=== PATIENT | male | born 1950 | race Caucasian/White ===

== ENCOUNTER 2024-02-12 13:09 | Inpatient (IN) | payer MEDICARE, SELFPAY ==
[2024-02-12 13:17] VITALS: BP 185/86; PULSE 79; RESP 17; TEMP 37.1; O2SAT 96; BMI 25.7
--- NOTE | 2024-02-12 13:20 | ED_ITS ---
HPI - Fall 2 General: Chief Complaint: Extremity Injury, Lower Stated Complaint: fall Time Seen by Provider: 02/12/24 13:17 Source: patient and EMS Mode of arrival: EMS Limitations: no limitations History of Present Illness: 73-year-old male states he was on an ext ension ladder states he is roughly 8 to 10 foot up and fell off the ladder he states he had fell on his left leg and hip has pain in that left hip. Was unable to ambulate is given fentanyl and route states pain is currently 4 out of 10 he denies any other injuries denies hitting his head denies any neck pain. Associated symptoms-after fall: Denies abdominal pain, chest pain, headache(s) or neck pain Related Data Allergies Allergy/AdvReac Type Severity Reaction Status Date / Time No Known Allergies Allergy Verified 02/12/24 13:22 Review of Systems 2 Const: Denies: fever(s), chills, body aches or change in appetite ENMT: Denies: throat pain or dental pain Card: Denies: chest pain Resp: Denies: dyspnea GI: Denies: abdominal pain, nausea, vomiting or diarrhea Musc: Reports: extremity pain; Denies: neck pain or back pain Neuro: Denies: headache(s) Physical Exam 2 Const: COMMON NORMALS: no acute distress, patient oriented x3 and healthy appearing HENMT: COMMON NORMALS: normocephalic and atraumatic HEAD & SCALP: n ormocephalic and atraumatic Eye: COMMON NORMALS: Equal, round and reactive pupils present and EOMs intact bilaterally PUPIL: Yes Equal, round and reactive pupils present Neck/C-Spine: COMMON NORMALS: full ROM and supple CERVICAL SPINE: Yes cervical ROM normal and No Cervical spine tenderness Chest: COMMONS NORMALS: normal inspection of the chest and normal palpation of entire chest wall Resp: COMMON NORMALS: normal respiratory effort, No retractions, No use of accessory muscles and clear to auscultation bilaterally AUSCULTATION: clear to auscultation bilaterally Cardio: COMMON NORMALS: regular rate RATE: regular rate GI: COMMON NORMALS: Normal to inspection, nondistended, normoactive bowel sounds present, Soft to palpation, non-tender and no masses PALPATION: Yes Soft to palpation Extremity: NARRATIVE EXTREMITY EXAM: Tenderness noted to left hip has pain with range of motion Neuro: COMMON NORMALS: patient oriented x3, moves all extremities and no focal motor deficits Psych: COMMON NORMALS: mental status grossly normal, Normal thought process present and cooperative THOUGHT PROCESS: Normal thought process present Skin: COMMON NORMALS: no rashes or lesions noted and no wounds GENERAL SKIN EXAM: no rashes or lesions noted Course 2 Vital Signs: Vital signs: Vital Signs Temperature 98.7 F 02/12/24 13:17 Pulse Rate 79 02/12/24 13:17 Respiratory Rate 17 02/12/24 13:17 Blood Pressure 185/86 02/12/24 13:17 Pulse Oximetry 96 02/12/24 13:17 Oxygen Delivery Me thod Room Air 02/12/24 13:17 MDM - Fall Medical Decision Making Patient presents after a fall off a ladder he has a left hip fracture of spoke to the hospitalist along with orthopedist will admit this time no other injuries noted on exam here. Medical Records I reviewed the patient's medical records. Lab Data I reviewed the patient's lab results. 02/12/24 14:11 02/12/24 14:11 Radiology Impressions Chest X-Ray 02/12/24 13:20 Impression: No acute lung process is appreciated. Hip/Pelvis X-Ray 02/12/24 13:20 Impression: There is a displaced intracapsular fracture of the left hip. Pelvis X-Ray 02/12/24 13:58 Impression: There is a displaced intracapsular fracture of the left hip. All radiology interpretation(s) finalized by discharge Discharge Plan Discharge Patient Disposition: Admitted As Inpatient Clinical Impression: Closed fracture of left hip Qualifiers: Encounter type: initial encounter Qualified Code(s): S72.002A - Fracture of unspecified part of neck of left femur, initial encounter for closed fracture Condition: Stable Coding Level of Care Code ED Marketing Intelligence Manager for Yasmine Escalera
--- NOTE | 2024-02-12 13:20 | XR_ITS ---
WS: [email or web address] Examination: XR hip LT 2-3V wo/w pel* [id number] Reason for Exam: fall Date: February 12, 2024 Comparison: None. Findings: There is a displaced intracapsular fracture of the left hip. No dislocation is suspected. XR/XR hip LT 2-3V wo/w pel* [id number] Impression: There is a displaced intracapsular fracture of the left hip.
--- NOTE | 2024-02-12 13:20 | XR_ITS ---
WS: [email or web address] Examination: XR chest 1V portable [id number] Reason for Exam: fall Date: February 12, 2024 Comparison: None. Findings: The heart is mildly prominent in size. The mediastinum is not widened There is no pulmonary edema or pleural effusion. Mild chronic changes are present peripherally. There is no dense consolidation. XR/XR chest 1V portable [id number] Impression: No acute lung process is appreciated.
--- NOTE | 2024-02-12 13:58 | XR_ITS ---
WS: [email or web address] Examination: XR pelvis 1-2V* [id number] Reason for Exam: fall Date: February 12, 2024 Comparison: None. Findings: A displaced left femoral neck fracture is identified. There is no dislocation. The right hip is intact. XR/XR pelvis 1-2V* [id number] Impression: There is a displaced intracapsular fracture of the left hip.
--- NOTE | 2024-02-12 14:02 | ECG_ITS ---
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 Measurements Intervals [place] Rate: 72 P: 56 AK: 168 QRS: 21 QRSD: 94 T: 44 QT: 401 QTc: 440 Interpretive Statements SINUS RHYTHM No previous ECG available for comparison Electronically Signed On 02-13-2024 7:38:30 CDT by Fazal Barajas M.D. [id number]
--- NOTE | 2024-02-12 14:18 | P.HP_ITS ---
Providers/Chief Complaint 2 Chief Complaint: fall History of Present Illness Jeromy Vasquez is a 73 year old male who present to the hospital after sustaining a fall. Patient is stating that he fell from 8 feet when he was trying to get rid of branches on the roof of his house, patient stating that he does not get any history of CHF, MD or cardiomyopathy. He take great pride in staying healthy at age 73. He is also faith and was talking about his faith beliefs during my evaluation. He has been evaluated by orthopedics, he has left-sided hip fracture. He is denying chest pain shortness of breath nausea vomiting, independent for daily activities. Lives with his . Review of Systems 2 Const: Denies: fever(s) Eyes: Denies: change in vision ENMT: Denies: throat pain Card: Denies: chest pain Resp: Denies: dyspnea GI: Denies: abdominal pain : Denies: flank pain Musc: Reports: extremity pain Medications/Allergies Home Medications Medication Instructions Recorded Confirmed Last Taken Type No Known Home Medications 02/12/24 02/12/24 Unknown History Allergies Allergy/AdvReac Type Severity Reaction Status Date / Time No Known Allergies Allergy Verified 02/12/24 13:22 Vitals/I&O/Wt Last Vital Signs Temp 98.7 F 02/12/24 13:17 Pulse 79 02/12/24 13:17 Resp 17 02/12/24 13:17 BP 185/86 02/12/24 13:17 Pulse Ox 96 02/12/24 13:17 O2 Del Method Room Air 02/12/24 13:17 Weight last 48 hrs Weight 86.183 kg Physical Exam 2 Narrative: Clinically euvolemic GCS 15 Nonfocal neuroexam S1, S2 Hypertension Abdomen soft EOMI, PERRLA Lower extremity no sign of vascular compromise Data 02/12/24 14:11 02/12/24 14:11 A&P Assessment and plan (1) Closed fracture of left hip: Qualifiers: Encounter type: initial encounter Qualified Code(s): S72.002A - Fracture of unspecified part of neck of left femur, initial encounter for closed fracture (2) Hypertension: Plan Left hip fracture Mechanical fall N.p.o. after midnight Dr. Ariza consulted Patient does not take any blood thinners No previous history of MD, independent on daily activities No need of preoperative cardiac workup Patient is full code Regular diet then n.p.o. after midnight SOTERO: Could be from dehydration start gentle fluid hydration 7 AM 02/12 DVT prophylaxis: SCDs Place Ceballos catheter Will use IV opioids along bowel regimen Attestations 2 Medical Necessity Statement*: More than 2 midnights anticipated Diagnoses Closed fracture of left hip S72.002A Encounter type: initial encounter Hypertension I10
[2024-02-12 14:21] LABS: Basophils % 0.3 %; Eosinophils % 0.1 %; Hematocrit 43.1 % (37-53); Lymphocytes # 0.9 10^3/uL (0.8-4.8); Lymphocytes % 6.6 %; Mean Corpuscular HGB Conc 32.5 g/dL (30-55); Mean Corpuscular Hemoglobin 29.2 pg (27-33); Mean Corpuscular Volume 89.8 fl (82-101); Mean Platelet Volume 9.9 fL (7.4-10.4); Monocytes # 0.5 10^3/uL (0.2-0.9); Monocytes % 3.7 %; Neutrophils # 11.57 10^3/uL (1.8-7.7); Neutrophils % 88.4 %; Nucleated Red Blood Cells % 0 %; Platelet Count 259 10^3/cmm (157-399); Red Cell Distribution Width 13.2 % (12.1-15.1); White Blood Count 13.08 10^3/uL (3.29-11.43)
[2024-02-12 14:37] LABS: Alanine Aminotransferase 26 U/L (0-41); Albumin Level 4.3 g/dL (3.5-5.2); Alkaline Phosphatase 108 U/L (40-130); Aspartate Amino Transferase 27 U/L (0-40); Blood Urea Nitrogen 15 mg/dL (8-23); Calcium 9.1 mg/dL (8.5-10.5); Carbon Dioxide 23 mmol/L (22-29); Chloride 104 mmol/L (98-107); Creatinine Clr Calc Pharmacy 52.2536; Glucose 140 mg/dL (65-115); Osmolality Calculated 291 mOsm/kg (285-295); Sodium 139 mmol/L (136-145); Total Bilirubin 0.4 mg/dL (0.15-1.2); Total Protein 7.3 g/dL (6.6-8.7)
[2024-02-12 14:48] LABS: INR 0.97 (0.8-1.2)
--- NOTE | 2024-02-12 15:10 | XR_ITS ---
WS: [email or web address] Examination: XR femur LT min 2V* [id number] Reason for Exam: left hip fx Date: February 12, 2024 Comparison: None. Findings: A displaced intracapsular fracture of the left hip is identified. There is no destruction. There is n o dislocation. XR/XR femur LT min 2V* [id number] Impression: There is a intracapsular fracture of the left hip.
--- NOTE | 2024-02-12 15:10 | XR_ITS ---
WS: [email or web address] Examination: XR knee LT 1-2V [id number] Reason for Exam: left hip fx Date: February 12, 2024 Comparison: None. Findings: Bone density is maintained. There is no destruction. There is no large joint effusion There is no fracture or dislocation There is narrowing of the medial joint space XR/XR knee LT 1-2V [id number] Impression: Degenerative changes are present with narrowing of the medial joint space.
--- NOTE | 2024-02-12 15:10 | CTR_ITS ---
PROCEDURE INFORMATION: Exam: CT Left Lower Extremity, Hip Exam date and time: 02/12/2024 3:36 PM Age: 73 years old Clinical indication: Injury or trauma; Fall; Fracture, traumatic; Closed fracture; Hip; Left; Additional info: Left hip FX, R/O no intertrochanteric extension TECHNIQUE: Imaging protocol: CT of the left lower extremity without contrast was performed. Exam focused on the hip. Radiation optimization: All CT scans at this facility use at least one of these dose optimization techniques: automated exposure control; mA and/or kV adjustment per patient size (includes targeted exams where dose is matched to clinical indication); or iterative reconstruction. COMPARISON: CR XR hip LT 2-3V wo/w pel* [id number] 02/12/2024 1:36 PM RADIATION DOSE METRICS: Total DLP (mGy-cm): 310 FINDINGS: Bones/joints: Fracture through the left femoral neck. No intertrochanteric extension of the fracture. Soft tissues: Normal. CT/CT hip LT wo con* [id number] IMPRESSION: Fracture through the left femoral neck. No intertrochanteric extension of the fracture.
--- NOTE | 2024-02-12 15:12 | P.CONIM_ITS ---
Providers/Reason For Consult 2 Consulting Physician/Specialty*: Nathanael Ariza DO/orthopedic surgery Reason for Consult*: Left hip femoral neck fracture Requesting Physician: Dr. Lalo Phillips Attending Physician: Dr. Hawthorne History of Present Illness History of Present Illness Jeromy Vasquez is a 73 year old male who present to the hospital after sustaining a fall. Patient is stating that he fell off of a ladder from roughly8 feet when he was trying to get rid of branches on the roof of his house, patient stating that he does not get any history of CHF, PR or cardiomyopathy. He take great pride in staying healthy at age 73. He has been evaluated by orthopedics, he has left-sided hip fracture. He is denying chest pain shortness of breath nausea vomiting, independent for daily activities. Lives with his . Internal medicine admitted patient is primary orthopedics consulted. Review of Systems 2 General: Reports: 10 or more systems reviewed and unremarkable except in HPI and below Medications/Allergies Home Medications Medication Instructions Recorded Confirmed Last Taken Type No Known Home Medications 02/12/24 02/12/24 Unknown History Allergies Allergy/AdvReac Type Severity Reaction Status Date / Time Alpha-Gal Allergy ALGY-Rash Verified 02/13/24 12:12 (Ioiqmlrsg-Ienwo-3,3-Gala Vitals/I&O/Wt Last Vital Signs Temp 98.7 F 02/12/24 13:17 Pulse 79 02/12/24 13:17 Resp 17 02/12/24 13:17 BP 185/86 02/12/24 13:17 Pulse Ox 96 02/12/24 13:17 O2 Del Method Room Air 02/12/24 13:17 Weight last 48 hrs Weight 190 lb Physical Exam 2 Narrative: Orthopedic examination: Examination of the left lower extremity demonstrates patient's left lower extremity shortened and externally rotated swelling and tenderness palpation about the left hip positive logroll examination unable to perform Stinchfield examination secondary to pain or discomfort. He is able to wiggle the toes with subtle plantarflexion dorsiflexion of the ankle but limited secondary to patient's pain and discomfort. Distal pulses are palpable left lower extremities warm well-perfused. No tenderness palpation about the left knee tibia or ankle Secondary survey examination unremarkable to the bilateral upper extremity joints or right lower extremity joints. Patient can actively mobilize the bilateral upper extremity joints with no pain or discomfort in the right lower extremity patient able to wiggle the toes plantarflex and dorsiflex ankle sensations intact light touch distally. Negative logroll examination of the right lower extremity Data 02/13/24 04:09 02/13/24 04:09 Xray Ortho: My impression: X-rays of the left hip femur knee and left hip CT scan reviewed in person interpreted by myself demonstrating a displaced left hip femoral neck fracture. No extension into the intertrochanteric region. Radiologist's impression: CT/CT hip LT wo con* [id number] IMPRESSION: Fracture through the left femoral neck. No intertrochanteric extension of the fracture. XR/XR knee LT 1-2V [id number] Impression: Degenerative changes are present with narrowing of the medial joint space. XR/XR femur LT min 2V* [id number] Impression: There is a intracapsular fracture of the left hip. XR/XR pelvis 1-2V* [id number] Impression: There is a displaced intracapsular fracture of the left hip XR/XR hip LT 2-3V wo/w pel* [id number] Impression: There is a displaced intracapsular fracture of the left hip. A&P Assessment and plan (1) Closed fracture of left hip: Qualifiers: Encounter type: initial encounter Qualified Code(s): S72.002A - Fracture of unspecified part of neck of left femur, initial encounter for closed fracture Plan N.p.o. at midnight Imaging reviewed Pain control Nonweightbearing left lower extremity Internal medicine is primary Plan to proceed to the OR today for left hip hemiarthroplasty Patient is a 73-year-old gentleman who lives at home with his is fairly active and mobile we talked about his treatment options and reviewed his imaging he does have a displaced left hip femoral neck fracture. We talked about treatment options far as nonoperative and operative mention. Given his activity level as well as for earlier mobilization and pain control would recommend surgical intervention of a left hip hemiarthroplasty. We talked about this in detail as far as the ins and outs procedure risk benefits complication alternatives of surgery. Risk of surgery include but not limited to make a better make it worse injury to nerves vessels or tendons, blood clot, infection, leg length discrepancies, hip instability, persistent pain, periprosthetic fracture. Understanding risk of surgery patient and elect to proceed with surgical intervention all questions have been answered at this time. Will proceed to the OR tomorrow. Coding Level of Care Code Acute Code for Chg Fwd Diagnoses Closed fracture of left hip S72.002A Encounter type: initial encounter Time Spent (min) 45
[2024-02-12] MEDS: morphine 4 mg/mL SDV 1 mL IVP ×2 (16:57→20:38)
[2024-02-12 17:07] VITALS: BP 151/81; PULSE 71; O2SAT 93
[2024-02-12 19:20] VITALS: BMI 25.7
[2024-02-12 20:04] LABS: Vitamin B12 552 pg/mL (232-1245)
[2024-02-12 20:38] VITALS: RESP 17; O2SAT 95
[2024-02-12 20:52] LABS: Estmated Average Glucose 111; Hemoglobin A1C 5.5 % (4.0-6.0)
[2024-02-12 21:20] VITALS: BP 185/86; PULSE 86; RESP 16; TEMP 37.1; O2SAT 94
[2024-02-12 22:02] VITALS: BP 148/81
[2024-02-13] VITALS (29 sets, daily range): BP systolic 103–169; BP diastolic 37–79; PULSE 65–88; RESP 12–20; TEMP -12.7–37.2; O2SAT 91–99
[2024-02-13] MEDS: morphine 4 mg/mL SDV 1 mL IVP ×2 (00:34→04:43)
--- NOTE | 2024-02-13 01:45 | PC.NURSE ---
Addendum entered by Margaret Altamirano RN 02/13/24 01:52: Event occured at 2200. Original Note: Patient blood pressure 185/86. Order for metoprolol to be given at 2100. Patient refused to take medication due to spiritism preferences. This nurse educated patient about results of not taking medication and the possibility of surgical delay. This nurse asked about pain level and stated in was an 8 or 9 out of 10. This nurse offered PRN order of morphine and an ice pack to affected extremity causing the pain. Physician notified about patient refusal of medication. SUPERVISOR TUNNEL HEADING took blood pressure 30 minutes after administering morphine and was 148/81. Physician notified again about current pressure. Plan of care ongoing.
[2024-02-13 04:52] LABS: Basophils # 0.1 10^3/uL (0.0-0.1); Basophils % 0.4 %; Eosinophils % 0.1 %; Hematocrit 40.4 % (37-53); Lymphocytes # 1.4 10^3/uL (0.8-4.8); Lymphocytes % 12.5 %; Mean Corpuscular HGB Conc 32.7 g/dL (30-55); Mean Corpuscular Hemoglobin 29.1 pg (27-33); Mean Corpuscular Volume 89.2 fl (82-101); Mean Platelet Volume 10.3 fL (7.4-10.4); Monocytes # 0.7 10^3/uL (0.2-0.9); Monocytes % 6.3 %; Neutrophils # 9.08 10^3/uL (1.8-7.7); Neutrophils % 80.3 %; Nucleated Red Blood Cells % 0 %; Platelet Count 241 10^3/cmm (157-399); Red Blood Count 4.53 10^6/uL (3.85-5.65); Red Cell Distribution Width 13.5 % (12.1-15.1)
[2024-02-13 05:15] LABS: Anion Gap 16.7 (5-19); Blood Urea Nitrogen 21 mg/dL (8-23); C Reactive Protein 49.3 mg/L (0.0-4.9); Calcium 8.6 mg/dL (8.5-10.5); Carbon Dioxide 22 mmol/L (22-29); Chloride 103 mmol/L (98-107); Creatinine Clr Calc Pharmacy 52.2536; Glucose 130 mg/dL (65-115); Magnesium 2.1 mg/dL (1.7-2.3); Osmolality Calculated 289 mOsm/kg (285-295); Phosphorus 2.8 mg/dL (2.5-4.5); Potassium 4.7 mmol/L (3.5-5.1); Sodium 137 mmol/L (136-145)
[2024-02-13] MEDS: HYDROmorphone 1 mg/mL INJ 1 mL IVP ×2 (06:54→10:22)
--- NOTE | 2024-02-13 08:38 | P.PN_ITS ---
Subjective 2 Subjective: Patient received Dilaudid, stating that pain is much better now Blood pressure still high Afebrile Patient did not want Ceballos catheter placement overnight Vitals/I&O/Wt Last Vital Signs Temp 97.4 F L 02/13/24 07:28 Pulse 76 02/13/24 07:33 Resp 18 02/13/24 07:33 BP 154/71 02/13/24 07:28 Pulse Ox 91 02/13/24 07:33 O2 Del Method Room Air 02/13/24 07:33 02/12/24 02/13/24 02/13/24 22:59 06:59 14:59 Intake Total 800 / 800 Balance 800 / 800 Weight last 48 hrs Weight 86.183 kg Weight 86.183 kg Physical Exam 2 Narrative: Awake and alert No sign of vascular compromise of left lower extremity Pleasant cooperative Euvolemic Hypertensive S1, S2 Nonfocal neuroexam Currently on room air Data 02/13/24 04:09 02/13/24 04:09 A&P Assessment and plan (1) Hypertension: (2) Closed fracture of left hip: Qualifiers: Encounter type: initial encounter Qualified Code(s): S72.002A - Fracture of unspecified part of neck of left femur, initial encounter for closed fracture Plan Left hip fracture Plan for intervention today N.p.o. Start IV fluids Hypertensive urgency Will need optimization of antihypertensive regimen DVT prophylaxis SCDs, start anticoagulating agent after surgery, post 4 hours Full code N.p.o. Diet can be advanced to cardiac after surgery Disposition: Likely home depending on PT eval after surgery Attestations 2 Medical Necessity Statement*: Plan to discharge in next 24 to 48 hours Diagnoses Hypertension I10 Closed fracture of left hip S72.002A Encounter type: initial encounter
--- NOTE | 2024-02-13 09:05 | PC.CHAP ---
Pastoral Care Encounter/Spiritual Assessment Type of Contact [] Declined commission associate visit [] Patient/Family/Request visit [] Outpatient visit [] Follow-up visit [] Physician referral [] Code/Alert [] Routine visit [] Staff referral [] Actively dying [x] Patient sleeping [] Family support [] [] Out of room [] Palliative care [] [] Receiving care in room [] Pre-surgical visit [] Trauma [] Long length of stay [] ICU visit [] Other: Relational/Emotional Strength [] Patient feels connected with others/family/visitors/staff [] Distress [] Loneliness/isolation [] Abandonment Spirituality of Patient [] Person of Chelsi [] Attends Latter-Day of their Chelsi [] Believes in Prayer [] Reads Bible or Sabianist materials [] There are Spiritual issues to be addressed Spudder Interventions [] Prayer [] Active listening [] Non-anxious presence [] Spiritual/emotional support [] Crisis/trauma care [] Spiritual counseling [] Bereavement support [] Provided bereavement packet [] Provided Bible/devotional materials [] Provided toy/stuffed animal, coloring book to patient or family member [] Provided Communion [] Anointing/[place] [] Salvation [] Completed spiritual assessment [] Other: Impact on Illness or Injury [] Angry [] Fearful [] Anxious [] Often cries [] Exhaustion [] Unable to work [] Unable to attend jehovah's witness [] Unable to walk/stand [] Unable to read [] Unable to drive [] Unable to eat/drink [] Unable to sleep [] Unable to be with family [] Patient intubated [] Other: Summary Time spent with patient
[2024-02-13] MEDS: sodium chloride 0.9% 1,000 ML 75 ML IV (10:23)
[2024-02-13] MEDS: sodium chloride 0.9% 1,000 ML 30 ML IV (11:35)
[2024-02-13] MEDS: acetaminophen 1,000 MG/100 ML PIGGYBACK 400 MG IV (11:35)
[2024-02-13] MEDS: ketorolac 30 mg/mL INJ IVP (11:36)
[2024-02-13] MEDS: lactated ringers 500 ML IV (11:46)
--- NOTE | 2024-02-13 11:47 | P.ANESASSM_ITS ---
Pre-Anesthetic Assessment Height/Weight: Height 1.83 m Weight 86.183 kg Temp Pulse Resp BP Pulse Ox O2 Del Method 99.0 F 65 17 165/79 91 Room Air 02/13/24 11:33 02/13/24 11:33 02/13/24 11:33 02/13/24 11:33 02/13/24 11:33 02/13/24 11:33 Operation Date: 02/13/24 13:10 Proposed Procedures p Hemiarthroplasty Hip(Left) - Nathanael To, DO Familial anesthetic complications: None Was Beta Moe taken within 24 hours: N/A Was Clonidine taken within 24 hours: N/A Last intake: Intake Last Liquid Date 02/12/24 Last Solid Date 02/12/24 Social Tobacco (chews) and No alcohol Exam alert, oriented x 3, clear to auscultation bilaterally and regular rate & rhythm CV/HEM Hypertension Anesthetic Plan ASA status: 2 Anesthesia: General Risk of > 500 ml blood loss (7ml/kg in children): No Medications/Allergies Home Medications Medication Instructions Recorded Confirmed Last Taken Type No Known Home Medications 02/12/24 02/12/24 Unknown History Allergies Allergy/AdvReac Type Severity Reaction Status Date / Time No Known Allergies Allergy Verified 02/12/24 13:22 Current Medications Generic Name Dose Route Start Last Admin Trade Name Manoloq PRN Reason Stop Dose Admin Amlodipine Besylate 5 mg 02/13/24 09:00 02/13/24 08:16 Amlodipine 5 Mg Tablet PO Not Given DAILY MITUL Hydromorphone HCl 1 mg 02/13/24 06:43 02/13/24 10:22 Hydromorphone 1 Mg/Ml Inj 1 Ml IVP 1 mg Q2H PRN Administration pain Sodium Chloride 1,000 mls @ 75 mls/hr 02/13/24 08:45 02/13/24 10:23 Sodium Chloride 0.9% IV 75 mls/hr .[id number] MITUL Administration Sodium Chloride 1,000 mls @ 30 mls/hr 02/13/24 11:30 02/13/24 11:35 Sodium Chloride 0.9% IV 30 mls/hr .Q24H MITUL Administration Lactated Ringer's 500 mls @ 500 mls/hr 02/13/24 11:45 02/13/24 11:46 Lactated Ringers IV 02/13/24 12:44 500 mls/hr .Q1H ONE Administration Isosorbide Mononitrate 20 mg 02/13/24 09:00 02/13/24 08:16 Isosorbide Mononitrate 20 Mg Tablet PO Not Given BID [facility] Metoprolol Tartrate 25 mg 02/12/24 21:00 02/13/24 08:16 Metoprolol Tartrate 25 Mg Tablet PO Not Given BID@0900,2100 [facility] Senna/Docusate Sodium 1 tab 02/13/24 09:00 02/13/24 08:16 Sennosides-Docusate Tablet PO Not Given DAILY MITUL Data Anesthesia 02/13/24 04:09 02/13/24 04:09 Short CBC 02/12/24 02/13/24 Range/Units 14:11 04:09 WBC 13.08 H 11.30 (3.29-11.43) 10^3/uL Hgb 14.00 13.20 (11.27-16.99) g/dL Hct 43.1 40.4 (37-53) % MCV 89.8 89.2 (82-101) fl Plt Count 259 241 (157-399) 10^3/cmm Neut % (Auto) 88.4 80.3 % Neut # (Auto) 11.57 H 9.08 H (1.8-7.7) 10^3/uL BMP 02/12/24 02/13/24 14:11 04:09 Sodium 139 137 Potassium 5.0 4.7 Chloride 104 103 Carbon Dioxide 23 22 BUN 15 21 Creatinine 1.4 H 1.4 H Glucose 140 H 130 H Calcium 9.1 8.6 Liver Function 02/12/24 Range/Units 14:11 Total Bilirubin 0.4 (0.15-1.2) mg/dL AST 27 (0-40) U/L ALT 26 (0-41) U/L Alkaline Phosphatase 108 (40-130) U/L Albumin 4.3 (3.5-5.2) g/dL Coags 02/12/24 02/13/24 14:11 04:09 PT 13.10 INR 0.97 C-Reactive Protein 49.3 H Cardiac Studies: 2 No Data to Display
--- NOTE | 2024-02-13 12:14 | P.HPUD_ITS ---
Surgery/Procedure H&P Update DATE OF PROCEDURE: February 13, 2024 DATE H&P PERFORMED: 02/12/24 H&P UPDATE INFORMATION: I have reviewed H&P completed within last 30 days, I have examined patient prior to procedure and No changes to prior documentation CHANGES TO PREVIOUS DOCUMENTATION: Patient imaging reviewed has a displaced left hip femoral neck fracture. We talked about his treatment options in detail as far as nonoperative operative i nvention. Through shared decision making patient and like to pursue surgical intervention for early mobilization as well as pain control. He has a displaced femoral neck fracture would recommend a left hip hemiarthroplasty. They understand the ins and outs procedure the risk benefits complication alternatives of surgery and through shared decision making like to proceed with surgical intervention. All questions answered at this time. PREOP DIAGNOSIS: Displaced left hip femoral neck fracture PRIMARY INDICATION FOR PROCEDURE: Displaced left hip femoral neck fracture PLANNED PROCEDURE: Operation Date: 02/13/24 13:10 Proposed Procedures p Hemiarthroplasty Hip(Left) - Nathanael Ariza DO
[2024-02-13] MEDS: ceFAZolin 2,000 MG in sodium chloride 0.9% (plus) 50 ML 100 MG IV ×2 (12:29→21:31)
[2024-02-13] MEDS: tranexamic acid 1,000 mg/10mL SDV 1000 MG IV (13:05)
--- NOTE | 2024-02-13 14:25 | XR_ITS ---
WS: [email or web address] Examination: XR hip LT 2-3V wo/w pel* [id number] Reason for Exam: post op left hip cristina Date: February 13, 2024 Comparison: February 12, 2024 Findings: In the interval there is been placement of a left hip prosthesis. Alignment appears satisfactory. Postop changes with air in the soft tissues and lateral skin leeann are noted. XR/XR hip LT 2-3V wo/w pel* [id number] Impression: There is been interval placement of a left hip prosthesis.
--- NOTE | 2024-02-13 14:26 | P.BOP_ITS ---
Date of Procedure: 02/13/2024 Surgeon: Nathanael Ariza DO Disc Pad Plate Filler(s): Kenton Ariza PA-C Procedure(s) performed: Left hip hemiarthroplasty Findings of the procedure(s): Patient was found to have displaced left hip femoral neck fracture. Underwent procedure as planned without issues or complications taken to PACU stable condition. Patient will return to the floor postoperatively. Posterior hip precautions. Estimated blood loss: 100 mL Specimen(s) removed: Left femoral head removed Post-operative diagnosis: Left hip displaced femoral neck fracture
--- NOTE | 2024-02-13 14:27 | PM.OP ---
Operative Report Date of procedure: February 13, 2024 Surgeon: Nathanael Ariza DO Process Controls Technician: Kenton Ariza PA-C: PA was necessary for assistance in this case with leg positioning retraction and protection of neurovascular structures as well as assistance in implantation wound closure and dressing application. Procedure: Preoperative diagnosis: Left hip femoral neck fracture displaced Post-op diagnosis: Same Procedure done: Left?hip?hemiarthroplasty, cemented Implants: Aries Accolade C 132 degree femoral stem size 4 Bipolar head 53 mm Femoral head +8 mm offset 8mm distal cement spacer Surgeon: Nathanael Ariza DO Estimated blood loss: 100 mL IV fluids: See anesthesia record Urine output: See anesthesia record Complications: None Findings: See operative report Condition: stable Disposition: floor Brief History: Patient was seen in the emergency department and subsequently admitted after fall.? Patient sustained a Left displaced femoral neck fracture.? Patient was subsequently admitted by the hospitalist team for medical management and medical optimization and the orthopedic surgery team was consulted for evaluation and treatment recommendations.? At that point time discussed with patient? treatment options.? We talked about nonoperative versus operative intervention talked about the risk benefits complication alternatives to surgical nonsurgical treatment options.? Risks of surgery were discussed and pt understands and agrees to proceed with procedure.? At this point time would recommend a Left?hip?hemiarthroplasty.? This will offer patient pain control as well as early weightbearing.? Patient was medically optimized by the primary team. ? Patient understands risk benefits complication alternatives with surgical nonsurgical treatment options.? At this point time elects to proceed with Left?hip?hemiarthroplasty.? All questions answered.? Patient understands agrees with current plan.? All questions answered. Procedure: Patient seen evaluated the preoperative holding area.? Consent was reviewed and signed with patient.? ?Pt was seen evaluated by the anesthesia department.? Once cleared for surgery patient patient was taken back to the operative suite.? Patient was then transported onto the OR table.? pt underwent anesthesia per the anesthesia department.? Once appropriately anesthetized patient was then positioned in lateral decubitus position with the Left?hip?up.? Patient was placed on a pegboard appropriately secured to the bed all bony prominences well-padded.? Next the Left lower extremity was then prepped and draped in sterile orthopedic fashion.? Final timeout performed.? Patient received appropriate preoperative antibiotics. A standard posterolateral approach was then made over the lateral aspect of the?hip.? Sharp scalpel incision was made through skin and subcutaneous tissue I then utilized a Thompson elevator to mobilize over the fascia.? The fascia was then split longitudinally with electrocautery.? Next a bursectomy was then performed.? I then placed Hohmann underneath the abductors.? The?hip?was placed under tension with internal rotation.? I then utilizing electrocautery performed a full-thickness release of the short external rotators and capsule in 1 full thick sleeve for lateral repair.? This was then taken down to the lesser trochanter.? Immediately on capsulotomy hematoma was noticed and displaced femoral neck fracture appreciated.? I then placed a Hohmann above and below the neck.? I protected my sciatic nerve throughout this case. This point time identified the fracture pattern which extended right into the basicervical region as a result I utilized an oscillating saw to freshen the cup right at the level of the lesser trochanter as this fracture pattern extended right to this level. This was flushed at the basicervical region. Cut was made excess bone was removed and had direct visualization of the femoral head. ?I then utilized a corkscrew to remove the head.? This was then subsequently sized and measured to be a 53 mm head size.? I then thoroughly irrigated the acetabulum.? A Hohmann was placed anteriorly and thorough inspection of the acetabulum no significant arthritic changes were noted.? I then utilized a rongeur and Bovie to remove the pulvinar.? Once this was performed I then subsequently took my trial 53 mm head and trialed this which had excellent fit and appropriate suction fit noted.? This was then subsequently removed. Once this was performed I irrigated the socket and then turned my attention towards the femoral preparation.? I utilized Bovie and rongeur to remove the soft tissue off of the saddle.? Once this was done a box osteotome followed by a canal finder and? lateralizing rattail rasp was used to appropriately lateralized in the canal.? Next I then subsequently broached to a size 4 Accolade C. Aries femoral stem was appropriately sized. Unfortunate this point none of the sizes would center have appropriate's fixation given patient's bone quality and could not trial as result decision was made to cement the stem in appropriate version of a size 4 stem add length from there. I then subsequently proceeded with standard cementation technique.? Cement was mixed on the back table the final implant was opened and appropriately measurement on distal cement plug to accommodate the cement mantle and femoral stem.? This was set and impacted in place to appropriate depth.? Next I utilized the cement brush thoroughly irrigated the canal and then dry the canal tampon.? Once cement was appropriately mixed and ready for cementation informed anesthesia and they optimize patient's oxygenation cement was then impacted using cement gun and then was subsequently pressurized.?? The femoral stem size 4 was then impacted in place with appropriate anteversion and held into place and all excess cement was removed and allowed to cure once cured I then trialed a up to a +8 mm neck length which at that point there was which had excellent leg lengths as well as appropriate shuck, and excellent stability in all planes of motion with no evidence of instability.? At this point this was determined to being my final femoral head size.? This was subsequently dislocated the trial head was then removed the final implant of bipolar head 53 mm with a +8 mm offset was then opened.? The trunnion was then cleaned and dried and this was impacted in place with excellent fixation.? I then reduced the?hip?this had excellent stability and appropriate leg lengths.? The wound bed was then thoroughly irrigated.? I then utilizing #5 Ethibond suture performed my repair of the capsule and short external rotators through bone tunnels.? ?Wound bed was then thoroughly irrigated,1 gram vanco powder placed in wound bed.? IT band was closed with strata fix suture and the deep subcutaneous and subcutaneous layers were closed with 0 strata fix and 2-0 strata fix.? Skin was then closed reapproximated with leeann.? Silverlon dressing applied.? Patient placed in abduction pillow posterior?hip?precautions.? pt? was awakened from anesthesia and taken to PACU in stable condition Disposition: Patient taken to PACU in stable condition will receive appropriate discharge directions as well as pain medication DVT prophylaxis postoperatively.? Patient? will return to the floor postoperatively.? Patient will be weightbearing as tolerated to the Left lower extremity.? Posterior?hip?precautions. Abduction pillow in place.? DVT prophylaxis, pain medication, postoperative antibiotics and TXA.? Patient will work with PT/OT and discharge services for discharge planning.? Patient understands agrees with current plan.? All questions answered.? ?patient will? see me in the office in 2 weeks.
--- NOTE | 2024-02-13 15:40 | ANE.PACU2 ---
Inpatient post-anesthesia follow up: Airway intact: Yes Vital signs: Temperature 9.2 F Pulse Rate 69 Respiratory Rate 18 Blood Pressure 137/71 Pulse Oximetry 95 Oxygen Delivery Me thod Nasal Cannula Oxygen Flow Rate 3 Fraction of Inspir ed Oxygen Hydration adequate: Yes Nausea and vomiting: No Pain level: 1 Mental status: Baseline
[2024-02-13] MEDS: chlorhexidine gluconate 0.12% Btl 473 mL 30 ML MUCOUS MEM (21:17)
[2024-02-13] MEDS: tranexamic acid 1,000 MG/100 ML PREMIX 600 MG IV (21:18)
[2024-02-13] MEDS: calcium carb-vit d 600mg/400unit 1 Tablet 1 EACH PO (21:32)
[2024-02-13] MEDS: isosorbide mononitrate 20 mg Tablet PO (21:32)
[2024-02-13] MEDS: metoprolol tartrate 25 mg Tablet PO (22:16)
[2024-02-14] VITALS (10 sets, daily range): BP systolic 136–239; BP diastolic 70–124; PULSE 65–112; RESP 17–18; TEMP 36.3–36.8; O2SAT 86–97
[2024-02-14] MEDS: ceFAZolin 2,000 MG in sodium chloride 0.9% (plus) 50 ML 100 MG IV (04:28)
[2024-02-14] MEDS: sodium chloride 0.9% 1,000 ML 75 ML IV (04:29)
[2024-02-14 05:02] LABS: Basophils % 0.2 %; Hematocrit 35.5 % (37-53); Lymphocytes # 0.8 10^3/uL (0.8-4.8); Lymphocytes % 6.8 %; Mean Corpuscular HGB Conc 31.5 g/dL (30-55); Mean Corpuscular Hemoglobin 29.2 pg (27-33); Mean Corpuscular Volume 92.4 fl (82-101); Mean Platelet Volume 10.1 fL (7.4-10.4); Monocytes # 0.6 10^3/uL (0.2-0.9); Monocytes % 5.3 %; Neutrophils # 9.73 10^3/uL (1.8-7.7); Neutrophils % 87.2 %; Nucleated Red Blood Cells % 0 %; Platelet Count 222 10^3/cmm (157-399); Red Blood Count 3.84 10^6/uL (3.85-5.65); Red Cell Distribution Width 13.6 % (12.1-15.1); White Blood Count 11.16 10^3/uL (3.29-11.43)
[2024-02-14 05:29] LABS: Anion Gap 14.9 (5-19); Blood Urea Nitrogen 30 mg/dL (8-23); Calcium 7.8 mg/dL (8.5-10.5); Carbon Dioxide 22 mmol/L (22-29); Chloride 106 mmol/L (98-107); Creatinine Clr Calc Pharmacy 50.0324; Glucose 147 mg/dL (65-115); Osmolality Calculated 295 mOsm/kg (285-295); Potassium 4.9 mmol/L (3.5-5.1); Sodium 138 mmol/L (136-145)
[2024-02-14 05:34] LABS: Magnesium 2.2 mg/dL (1.7-2.3)
--- NOTE | 2024-02-14 05:59 | PC.NURSE ---
Approximately around 0515 this nurse was alerted by patients yelling for help. This nurse immediately responded to the room as well as a couple other staff members. Patient appeared to be spasming or having seizure like activity. This nurse placed patient on his side the best we could (POD1 L hip with ) and applied O2. Vitals were taken at this time and were as followed: BP 239/124, HR 112, 86% 2L nc. patient shortly came too afterwards and was AOx4 and responsive, returning back to baseline on nuro checks. This nurse called at 0520 and received orders to check stat Mag, place pt on telly and seizure precaution and cycle bp Q5 min and notify of results. BP was retaken around 0525 and was 161/81. notified and gave orders to continue to monitor patient. Patient has been weaned down to 1L NC Nuro checks at baseline with no deficits. is at bedside and stated we are pharmacutical virgins he is not used o all this new medication, I think it was his blood pressure meds that did this MD notified and told to hold medication until has a chance to talk with patient and family as well as continuing Q4 hour nuro checks.
--- NOTE | 2024-02-14 08:29 | PM.DCS ---
Discharge Providers Date of Admission: 02/12/24 16:55 Date of Discharge: February 14, 2024 Attending Provider at Admission: Janiya Hawthorne MD Attending Provider at Discharge: Janiya Hawthorne MD Diagnoses at Discharge Discharge Diagnosis (1) Closed fracture of left hip: Status: Acute Qualifiers: Encounter type: initial encounter Qualified Code(s): S72.002A - Fracture of unspecified part of neck of left femur, initial encounter for closed fracture Reason for Visit Reason for Visit: fall Hospital Course Hospital Course 73-year-old male who was admitted for management evaluation of left hip fracture after sustaining a fall from 8 feet while trying to get into branches from the top of his roof, patient is stating that he does not believe in pharmaceutical medications, he has remained drug-free throughout his life, 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 Ariza was consulted status post left hip arthroplasty 02/12, patient remained hypertensive, he is against all the antihypertensive regimens have been recommended but willing to take lisinopril 20 mg at home in case his blood pressure stays above 130/80 mmHg. They are also against COVID-19 vaccine and stating that they would go for primary care doctor who is not taking insurance and willing to take alvarez only. They do not want to establish PCP. I have told him that I will give him aspirin as a DVT prophylactic regimen for a month is stating that she has enough supply of aspirin at home, patient is agreeable for aspirin for a month and lisinopril on as-needed basis if pressure stays high. I will also give him referral to follow-up with Dr. Ariza in the clinic. Physical Exam Narrative: Awake and alert GCS 15 No sign of vascular compromise left leg Dressing is clean no soaking with blood or drainage Currently blood pressure 141/70 mL/kg Afebrile Discharge Data Studies Completed and Pending Completed Studies During Hospitalization Category Date Time Status CT hip LT wo con* [id number] Stat Cat Scan 02/12/24 15:10 Completed CXRP [XR chest 1V portable [id number]] Stat Exams 02/12/24 13:20 Completed XR femur LT min 2V* [id number] Stat Exams 02/12/24 15:10 Completed XR hip LT 2-3V wo/w pel* [id number] Routine Exams 02/13/24 14:25 Completed XR hip LT 2-3V wo/w pel* [id number] Stat Exams 02/12/24 13:20 Completed XR knee LT 1-2V [id number] Stat Exams 02/12/24 15:10 Completed XR pelvis 1-2V* [id number] Stat Exams 02/12/24 13:58 Completed Radiology Impressions Chest X-Ray 02/12/24 13:20 Impression: No acute lung process is appreciated. Pelvis X-Ray 02/12/24 13:58 Impression: There is a displaced intracapsular fracture of the left hip. Femur X-Ray 02/12/24 15:10 Impression: There is a intracapsular fracture of the left hip. Hip CT 02/12/24 15:10 IMPRESSION: Fracture through the left femoral neck. No intertrochanteric extension of the fracture. Knee X-Ray 02/12/24 15:10 Impression: Degenerative changes are present with narrowing of the medial joint space. Hip/Pelvis X-Ray 02/13/24 14:25 Impression: There is been interval placement of a left hip prosthesis. Laboratory Results WBC 11.16 10^3/uL (3.29-11.43) 02/14/24 04:51 RBC 3.84 10^6/uL (3.85-5.65) L 02/14/24 04:51 Hgb 11.20 g/dL (11.27-16.99) L 02/14/24 04:51 Hct 35.5 % (37-53) L 02/14/24 04:51 MCV 92.4 fl (82-101) 02/14/24 04:51 MCH 29.2 pg (27-33) 02/14/24 04:51 MCHC 31.5 g/dL (30-55) 02/14/24 04:51 RDW 13.6 % (12.1-15.1) 02/14/24 04:51 Plt Count 222 10^3/cmm (157-399) 02/14/24 04:51 MPV 10.1 fL (7.4-10.4) 02/14/24 04:51 Neut % (Auto) 87.2 % 02/14/24 04:51 Lymph % (Auto) 6.8 % 02/14/24 04:51 Collin % (Auto) 5.3 % 02/14/24 04:51 Eos % (Auto) 0.0 % 02/14/24 04:51 Baso % (Auto) 0.2 % 02/14/24 04:51 Neut # (Auto) 9.73 10^3/uL (1.8-7.7) H 02/14/24 04:51 Lymph # (Auto) 0.8 10^3/uL (0.8-4.8) 02/14/24 04:51 Collin # (Auto) 0.6 10^3/uL (0.2-0.9) 02/14/24 04:51 Eos # (Auto) 0.0 10^3/uL (0.0-0.8) 02/14/24 04:51 Baso # (Auto) 0.0 10^3/uL (0.0-0.1) 02/14/24 04:51 Nucleated RBC % (auto) 0 % 02/14/24 04:51 Nucleated RBCs # 0.0 /100WBC 02/14/24 04:51 PT 13.10 SECONDS (12.1-14.9) 02/12/24 14:11 INR 0.97 (0.8-1.2) 02/12/24 14:11 Sodium 138 mmol/L (136-145) 02/14/24 04:51 Potassium 4.9 mmol/L (3.5-5.1) 02/14/24 04:51 Chloride 106 mmol/L (98-107) 02/14/24 04:51 Carbon Dioxide 22 mmol/L (22-29) 02/14/24 04:51 Anion Gap 14.9 (5-19) 02/14/24 04:51 BUN 30 mg/dL (8-23) H 02/14/24 04:51 Creatinine 1.5 mg/dL (0.7-1.2) H 02/14/24 04:51 GFR Calculation Not Reportable 02/14/24 04:51 Glucose 147 mg/dL (65-115) H 02/14/24 04:51 Estimat Average Glucose 111 02/12/24 14:11 Hemoglobin A1c 5.5 % (4.0-6.0) 02/12/24 14:11 Calculated Osmolality 295 mOsm/kg (285-295) 02/14/24 04:51 Calcium 7.8 mg/dL (8.5-10.5) L 02/14/24 04:51 Phosphorus 2.8 mg/dL (2.5-4.5) 02/13/24 04:09 Magnesium 2.2 mg/dL (1.7-2.3) 02/14/24 04:51 Total Bilirubin 0.4 mg/dL (0.15-1.2) 02/12/24 14:11 AST 27 U/L (0-40) 02/12/24 14:11 ALT 26 U/L (0-41) 02/12/24 14:11 Alkaline Phosphatase 108 U/L (40-130) 02/12/24 14:11 C-Reactive Protein 49.3 mg/L (0.0-4.9) H 02/13/24 04:09 Total Protein 7.3 g/dL (6.6-8.7) 02/12/24 14:11 Albumin 4.3 g/dL (3.5-5.2) 02/12/24 14:11 Globulin 3.0 g/dL (1.3-4.6) 02/12/24 14:11 Vitamin B12 552 pg/mL (232-1245) 02/12/24 14:11 Blood Type O Positive 02/13/24 11:20 Rho(D) Type Rh positive 02/13/24 11:20 Antibody Screen Negative 02/13/24 11:20 Vitals Last Vital Signs Temp 97.7 F 02/14/24 07:34 Pulse 70 02/14/24 07:34 Resp 18 02/14/24 07:34 BP 141/70 02/14/24 07:34 Pulse Ox 97 02/14/24 07:34 O2 Del Method Nasal Cannula 02/14/24 07:34 O2 Flow Rate 3 02/13/24 20:48 Discharge Plan Discharge Patient Disposition: Home Condition: Stable Prescriptions: New hydrocodone-acetaminophen 5-325 mg tablet 1 tab PO BID PRN (Reason: pain) Qty: 10 0RF lisinopril 20 mg tablet 20 mg PO DAILY PRN (Reason: Blood pressure above 130/80 mmhg) Qty: 60 3RF Rx Instructions: Blood pressure above 130/80 mmHg Discharge Orders: Discharge Order (Routine); Ordered 02/14/24 Ordered By: Janiya Hawthorne Referrals: Nathanael Ariza DO [Physician] - 02/29/24 10:30 am () Discharge Diet: Cardiac Discharge Activity: As per PT/OT instructions Patient Instructions: Acute Wound Care (DC), Opioid Safety, Post Anesthesia Care Discharge Attestations Time Spent in Discharge Care*: greater than 30 min Quality Metrics Clinical Quality Measures [ No reported AMI, CVA or VTE this stay] Coding Level of Care Code Acute Code for Chg Fwd Diagnoses Closed fracture of left hip S72.002A Encounter type: initial encounter
[2024-02-14] MEDS: multivitamin therapeutic Tablet 1 TAB PO (09:21)
[2024-02-14] MEDS: calcium carb-vit d 600mg/400unit 1 Tablet 1 EACH PO (09:21)
[2024-02-14] MEDS: chlorhexidine gluconate 0.12% Btl 473 mL 30 ML MUCOUS MEM (09:22)
--- NOTE | 2024-02-14 09:41 | PC.SOCIAL ---
IMM Update pg 2 of IMM updated and reviewed w/ patient. Copy provided and copy dated, initialed and placed in chart.
--- NOTE | 2024-02-14 11:08 | PC.NURSE ---
Dr. Hawthorne in room when patient and spouse refused all heart meds, lovenox and anything other than vitamins.
--- NOTE | 2024-02-14 12:51 | P.PN_ITS ---
Subjective 2 Subjective: Patient seen and examined around lunchtime prior to patient being discharged as he was cleared for discharge by internal medicine. He is postoperative day 1 he is gotten up and work with therapy the ready for discharge home today companied by . Vitals/I&O/Wt Last Vital Signs Temp 97.7 F 02/14/24 07:34 Pulse 70 02/14/24 07:34 Resp 18 02/14/24 07:34 BP 141/70 02/14/24 07:34 Pulse Ox 97 02/14/24 07:34 O2 Del Method Nasal Cannula 02/14/24 07:34 O2 Flow Rate 3 02/13/24 20:48 02/13/24 02/14/24 02/14/24 22:59 06:59 14:59 Intake Total 984 / 1180.25 980 / 2160.25 360 / 360 Output Total 50 / 150 200 / 350 Balance 934 / 1030.25 780 / 1810.25 360 / 360 Weight last 48 hrs Weight 201 lb 9 oz Weight 190 lb Weight 190 lb Physical Exam 2 Narrative: Examination of the left hip dressings on in place is clean dry and intact normal postoperative swelling and tenderness palpation about the left hip. He is able to tolerate gentle hip range of motion he is able to move his ankle up and down. Left lower extremity warm well-perfused. Patient sitting upright and just had lunch. Data 02/14/24 04:51 02/14/24 04:51 Xray Ortho: Radiologist's impression: XR/XR hip LT 2-3V wo/w pel* [id number] Impression: There is been interval placement of a left hip prosthesis. A&P Assessment and plan (1) Status post hip hemiarthroplasty: Plan Weightbearing as tolerated left lower extremity X-rays reviewed stable left hip cristina Resume regular diet Pain control PT/OT DVT prophylaxis-patient agrees with primary to take full dose aspirin twice daily originally was going to go home on Eliquis or Lovenox. Labs reviewed Ice and elevate as needed for pain and swelling Posterior hip precautions Antinausea medication as needed Patient stable for discharge from orthopedic standpoint and planning on discharging home today cleared by internal medicine. Patient orthopedic surgery team will sign off patient at this time follow peripherally if there is any question pertaining patient care for for contact orthopedics on-call.? Discharge instruction as well as discharge medications are in patient's chart.? pt will follow-up with us in the office in 2 weeks.? Patient understands agrees with current plan.? Questions answered. Attestations 2 Medical Necessity Statement*: Ongoing care status post left hip hemiarthroplasty Coding Level of Care Code Acute Code for Chg Fwd Diagnoses Status post hip hemiarthroplasty Z96.649 Time Spent (min) 15
--- NOTE | 2024-02-14 13:22 | PC.NURSE ---
Patient has refused antibiotic for 1230. DR. Ariza notified. Patient also refused vitals for 1200.
== END 2024-02-14 13:38 | disposition home or self-care (01) | DRG 522 ==
LOC: ER 16:06 → MEDSURG 16:55
PROVIDERS: Internal Medicine; Student in an Organized Health Care Education/Training Program; Admitting Provider Internal Medicine; Emergency Provider Emergency Medicine; Visit Provider Internal Medicine
PROC: 0SRS0J9 Replacement of Left Hip Joint, Femoral Surface with Synthetic Substitute, Cemented, Open Approach (ICD-10-PCS; CPT 27125; principal; 2024-02-13 12:40)
DX: S72.002A Fracture of unspecified part of neck of left femur, initial encounter for closed fracture (principal); N17.9 Acute kidney failure, unspecified; I16.0 Hypertensive urgency; W17.89XA Other fall from one level to another, initial encounter; Y92.007 Garden or yard of unspecified non-institutional (private) residence as the place of occurrence of the external cause
CPT/HCPCS: 36415; 71045; 72170; 73502; 73552; 73560; 73700; 80048; 80053; 82607; 83036; 83735; 84100; 85025; 85610; 86140; 86850; 86900; 93005; 97110; 97116; 97161; 97166; 97530; 99285; C1713; C1776; J0131; J0690; J1100; J1170; J1200; J1885; J2270; J2405; J2704; J3010; J3490; J7030; J7120

== ENCOUNTER → 2024-02-28 10:26 | Outpatient (BNVA) | payer SELFPAY | PROVIDERS: Visit Provider Physician Assistant | DX: Z96.642 Presence of left artificial hip joint | CPT/HCPCS: 73502 ==

== ENCOUNTER → 2024-04-09 08:40 | Outpatient (BNVA) | payer SELFPAY | PROVIDERS: Visit Provider Student in an Organized Health Care Education/Training Program | DX: Z96.642 Presence of left artificial hip joint (principal) | CPT/HCPCS: 73502 ==

== ENCOUNTER → 2024-07-16 12:43 | Outpatient (BNVA) | payer MEDICARE, SELFPAY | PROVIDERS: Visit Provider Student in an Organized Health Care Education/Training Program | DX: Z96.649 Presence of unspecified artificial hip joint (principal) | CPT/HCPCS: 73502; 99213 ==

== ENCOUNTER → 2025-02-18 12:46 | Outpatient (BNVA) | payer SELFPAY | PROVIDERS: Visit Provider Student in an Organized Health Care Education/Training Program | DX: Z96.642 Presence of left artificial hip joint (principal); Z48.89 Encounter for other specified surgical aftercare | CPT/HCPCS: 73502 ==